=== PATIENT | male | born 1965 | race Caucasian/White ===

== ENCOUNTER → 2019-10-15 | Outpatient (CLI) | payer OTHER ==
--- NOTE | 2019-10-15 21:39 | CT ---
EXAMINATION TYPE: CT soft tissue neck wo/w con DATE OF EXAM: 10/15/2019 COMPARISON: None HISTORY: Prior Left sided swelling and pain. CT DLP: 1265.4 mGycm CONTRAST: Patient injected with 100 mL of Isovue 300. TECHNIQUE: Axial images at 3 mm thick sections. Reconstructed images in the coronal plane and sagitt al plane are reviewed. FINDINGS: Limited CT sections are obtained the lung apices. The lung apices appear clear. CT neck: The torus tubarius and fossa of Rosenmuller are normal. Ribbon Tier spaces are normal. Para nasal sinuses and mastoid air cells are clear. Parotid glands appear normal and symmetrical. Left submandibular gland may be slightly more prominent than the right. This may have been present on a comparison CT cervical spine of 01/04/2013 within th e [id number]. Parapharyngeal spaces are normal. No suspicious adenopathy is evident. The hypopharynx appears within normal limits. Vocal cord level appear symmetrical. Thyroid as visualized is normal. Osseous structures are normal. IMPRESSIONS: 1. No suspicious abnormality to account for left neck swelling or prominence
== END | disposition home or self-care (01) ==
LOC: RADCTMAIN 07:58
PROVIDERS: ATTEND Otolaryngology Facial Plastic Surgery
DX: R22.1 Localized swelling, mass and lump, neck (principal)
CPT/HCPCS: 70492; Q9967

== ENCOUNTER 2020-11-06 12:32 | Emergency (ER) | payer OTHER ==
[2020-11-06] MEDS ORDERED: FLUORESCEIN STRIPS 1 MG STRIP LEFT EYE ONE (13:09)
[2020-11-06] MEDS ORDERED: PROPARACAINE 0.5% OPHTH DROPS 15 ML BTL LEFT EYE SCH (13:15)
[2020-11-06] MEDS ORDERED: TOBRAMYCIN 0.3% OPHTH DROPS 5 ML BTL LEFT EYE STA (13:31)
[2020-11-06] MEDS ORDERED: DIPH,PERTUS(ACELL)TETVAC-LF 0.5 ML VIAL IM ONE (13:31)
--- NOTE | 2020-11-06 13:38 | ED ---
General Adult HPI - General Chief complaint: Eye Problems Stated complaint: Metal in Lt Eye Time Seen by Provider: 11/06/20 13:04 Source: patient, family, RN notes reviewed Mode of arrival: ambulatory Limitations: no limitations - History of Present Illness Initial comments: Patient is a pleasant 55-year-old male presenting to the emergency department w ith concern for piece of metal in his left eye. This has been present for approximately 3 days. Patient has history of similar symptoms previously. Patient was cleaning out his garage this time and feels something got under. Patient questions if it's metal however is not certain. Patient tried a magnet however was not able to get it out. Patient also tried a Q-tip. Patient states the eye is mildly irritated. No visual change. Patient sees an abnormal area below his pupil. - Related Data Allergies Allergy/AdvReac Type Severity Reaction Status Date / Time No Known Allergies Allergy Verified 11/06/20 12:49 Review of Systems ROS Statement: Those systems with pertinent positive or pertinent negative responses have been documented in the HPI. ROS Other: All systems not noted in ROS Statement are negative. Constitutional: Denies: fever Eyes: Reports: as per HPI Past Medical History History of Any Multi-Drug Resistant Organisms: None Reported Past Psychological History: No Psychological Hx Reported Smoking Status: Current some day smoker Past Alcohol Use History: None Reported Past Drug Use History: None Reported General Exam Limitations: no limitations General appearance: alert, in no apparent distress Head exam: Present: normocephalic Eye exam: Present: PERRL, EOMI, other (Foreign body approximate 1 mm is noted underneath and medial to the left pupil. There is some fluorescein uptake at that area without blaze sign.) Neck exam: Present: normal inspection Respiratory exam: Present: normal lung sounds bilaterally Cardiovascular Exam: Present: regular rate, normal rhythm Extremities exam: Present: normal inspection Neurological exam: Present: alert Psychiatric exam: Present: normal affect, normal mood Course Vital Signs 11/06/20 12:46 Temperature 98.4 F Pulse Rate 73 Respiratory 19 Rate Blood Pressure 122/83 O2 Sat by Pulse 98 Oximetry Procedures - Forgein Body Removal Eye Site: Left Anesthetic Used: Proparacaine Eye Exam Technique: Fluorescein Foreign Body Suspected: Metal Forgein Body Removal Technique: Cotton Swab (Unable to remove with cotton swab), Needle Patient Tolerated: other (Patient did have mild amount of rust retained following foreign body removal that was also removed with needle.) Disposition Clinical Impression: Foreign body of left eye Disposition: HOME SELF-CARE Condition: Stable Instructions (If sedation given, give patient instructions): Eye Foreign Body (ED) Additional Instructions: Please follow-up with primary care physician or ophthalmology, number provided in the next day or 2 for recheck. Return for visual changes, increased redness or pain or swelling, fever, worsening symptoms or any other concerns. Use Tobrex eye drops: 1 drop every 4 hours while awake for the next 5 days. Is patient prescribed a controlled substance at d/c from ED?: No Referrals: Ariel Victoria MD [Primary Care Provider] - 1-2 days Time of Disposition: 13:38
[2020-11-06 14:10] VITALS: BP 120/72; PULSE 70; RESP 18; TEMP 98.2
== END 2020-11-06 13:55 | disposition home or self-care (01) ==
LOC: EC 12:32
DX: T15.92XA Foreign body on external eye, part unspecified, left eye, initial encounter (principal); F17.200 Nicotine dependence, unspecified, uncomplicated; Z23 Encounter for immunization; W45.8XXA Other foreign body or object entering through skin, initial encounter
CPT/HCPCS: 65205; 90471; 90715; 99283